=== PATIENT | male | born 1960 | race Caucasian/White ===

== ENCOUNTER 2017-01-04 05:09 | Day surgery (SDC) | payer BC, OTHER ==
[~2017-01-04] VITALS: Ht 172.7 cm; Wt 93.9 kg
--- NOTE | ~2017-01-04 | HP ---
[facility] AGE: 56 Y [address] ROOM: [place] [address] LOCATION: [facility] [place] ADMIT DATE: 01/04/2017 History & Physical DISCHARGE DATE: FAMILY PHYSICIAN: Evan Doe MD ATTENDING PHYSICIAN: Desean Love DATE OF SERVICE: CHIEF COMPLAINT: Low back pain. HISTORY OF PRESENT ILLNESS: This 56-year-old male from [place], was admitted to the hospital for elective surgery on his back. His operating surgeon is Dr. Desean Love. When I see the patient postop and follow him now for his hypertension, hypothyroidism, potential hypoxemia secondary to obstructive sleep apnea. When I see him, he has no nausea, no vomiting, no chest pain, no shortness of breath postop. PAST MEDICAL HISTORY: MEDICINES: 1. Tricor 48 mg one daily. 2. Ziac 10 mg one daily. 3. Synthroid 0.15 mg daily. 4. Singulair 10 mg at night. 5. Vitamin B complex one daily. 6. Tylenol as needed. 7. CoQ10 100 mg twice a day. ALLERGIES TO MEDICATION: Augmentin causing "stomach pain." SOCIAL HISTORY: Does not smoke cigarettes. FAMILY HISTORY: Negative for problem with bleeding disorder or general anesthesia. PREVIOUS OPERATIONS: Status post laminectomy on lumbar region 2012, status post C5-C7 diskectomy fusion 2016. REVIEW OF SYSTEMS: [facility] AGE: 56 Y [address] ROOM: [place] [address] LOCATION: [facility] [place] ADMIT DATE: 01/04/2017 History & Physical DISCHARGE DATE: FAMILY PHYSICIAN: Evan Doe MD ATTENDING PHYSICIAN: Desean Love Positive for obesity, hypertension, hypothyroid replacement, low back pain, previous neck surgery, and hypothyroidism; otherwise, see nurse's database form. Also positive for history of hyperlipidemia, irritable bowel syndrome, gout, generalized osteoarthritis, and seasonal allergic rhinitis. PHYSICAL EXAMINATION: GENERAL: Pleasant dark haired male. He is oriented to person, place, and time. HEENT: He wears glasses. Pupils react to light. TMs not visualized. Posterior pharynx is clear. NECK: Unremarkable. No adenopathy. No thyroid enlargement. LUNGS: Clear without wheeze or rub. HEART: Shows no murmur, gallop, or rub. ABDOMEN: Mildly obese. Nontender. No mass. PELVIC AND RECTAL: Not done. EXTREMITIES: Show pulses full throughout. NEUROLOGIC: Cranial nerves intact. No lateralizing signs. Mental status is normal for age. ASSESSMENT: 1. Low back pain. 2. Status post lumbar back surgery, see Dr. Love's operative note. 3. Hypertension, essential. 4. History of hyperlipidemia. 5. History of irritable bowel syndrome. 6. History of gout. 7. Generalized osteoarthritis. 8. Hypothyroid replacement. 9. Allergic rhinitis, perennial. PLAN: Follow daily, further changes indicated. MD RIGOBERTO DIOP/anisha /[id number] D: 043 T: 034 HISTORY & PHYSICAL
--- NOTE | ~2017-01-04 | PUL ---
PATIENT'S NAME: PURA MELENDREZ [facility] AGE: 56 Y [address] ROOM: [address] [address] LOCATION: [facility] [place] ADMIT DATE: 01/04/2017 Pulmonary DISCHARGE DATE: 01/05/2017 FAMILY PHYSICIAN: Evan Doe MD ATTENDING PHYSICIAN: Desean Love NAME OF PROCEDURE: Overnight Pulse Oximetry DATE OF PROCEDURE: January 04 to January 05, 2017 REASON FOR EXAM: Nocturnal hypoxemia RESULTS: The test was performed on room air. The recording time was 9 hours, 7 minutes, with a total valid sampling time of 8 hours, 54 minutes, and 24 seconds. The highest pulse was 104, lowest pulse was 67, with a mean pulse of 82. The highest SpO2 was 96%, lowest SpO2 was 69%, with a mean SpO2 of 86.6%. The patient spent 7 hours, 37 minutes, and 32 seconds with SpO2 less than 89%, representing 85.6% of the total sleep time. The desaturation event index was elevated at 13.5. PHYSICIAN INTERPRETATION: The patient has evidence of significant nocturnal hypoxia and would qualify for supplemental oxygen as per Medicare criteria. However, because of the severity of his nocturnal hypoxia with an elevated desaturation event index a sleep study is recommended at this time. MD COREEN ROSALES/katerina /[id number] dtt: 01/09/17 1200 SUDHA RADU F dtd: 01/07/17 1541
--- NOTE | ~2017-01-04 | OR ---
PATIENT'S NAME: PURA MELENDREZ [facility] AGE: 56 Y [address] ROOM: [place] [address] LOCATION: [facility] [place] ADMIT DATE: 01/04/2017 OR/Procedure Report DISCHARGE DATE: FAMILY PHYSICIAN: Evan Doe MD ATTENDING PHYSICIAN: Desean Love SURGEON: Desean Love MD WINDOWS [employer] ADMINISTRATOR: DATE OF PROCEDURE: 01/04/2017 PREOPERATIVE DIAGNOSES: 1. Lumbar degenerative disk disease. 2. Lumbar stenosis. 3. Lumbar radiculopathy. 4. Low back pain. 5. Status post lumbar fusion L3-S1. POSTOPERATIVE DIAGNOSES: 1. Lumbar degenerative disk disease. 2. Lumbar stenosis. 3. Lumbar radiculopathy. 4. Low back pain. 5. Status post lumbar fusion L3-S1. PROCEDURES PERFORMED: 1. Lumbar hemilaminotomy, bilateral L1-L2. 2. Lumbar hemilaminotomy left L2-L3. K9 HANDLER: Rusty Harvey PA-C. ANESTHESIA: General. ESTIMATED BLOOD LOSS: 25 mL. COMPLICATIONS: None. SPECIMENS: None. FINDINGS: Stenosis. OPERATIVE INDICATIONS: The patient is a 56-year-old male who I have followed for symptomatic lumbar spinal stenosis. He was status post fusion from L3-S1 and had developed stenosis at L1-L2 and L2-L3. The stenosis was mostly posterior element hypertrophy, but some disk disease at L1-L2. Because of its proximity to the conus, it was determined that he would do best with lowest risk of just a decompression and not partial diskectomy of the area. After [facility] AGE: 56 Y [address] ROOM: [place] [address] LOCATION: [facility] [place] ADMIT DATE: 01/04/2017 OR/Procedure Report DISCHARGE DATE: FAMILY PHYSICIAN: Evan Doe MD ATTENDING PHYSICIAN: Desean Love details, risks, benefits, and options were explained, he freely consented to surgery. OPERATIVE NARRATIVE: After the patient was correctly identified, operative site initialed, he was taken back to the operating room, placed in the supine position. After general anesthesia was induced, he was placed in the prone position on the Donnell frame with all bony prominences well-padded and protected. The back was prepped and draped in usual sterile fashion. Time- out was taken to verify the patient and procedure. He received IV antibiotics prior to surgery. 10 mL of 0.25% Marcaine with epinephrine was injected in line with the incision. A 10-blade was used to make an incision over his previous scar. Dissection taken down through subcutaneous tissue electrocautery. The fascia was opened midline and subperiosteal dissection performed to expose the posterior elements. Doron elevator was placed at L1- L2 to verify the correct levels. Self-retaining tractors placed the wound. High-speed bur was used to create a laminotomy defect bilaterally at L1-L2 and unilaterally at L2-L3 at the superior aspect of L2. The limb plane was encountered and then Kerrisons were used to complete the laminotomy. The ligamentum of flavum was resected and the dura was identified and directly decompressed. After the L1-L2 area and L2-L3 area were properly decompressed and probed freely, the nerve hook was passed lateral to the dura gently to feel for this tissue. It was non-compressive and with the posterior decompression, there were no further areas of stenosis. The area was irrigated and dried. An 80 mg of Depo-Medrol was injected dorsally over the dura. The self-retaining retractors were removed from the wound and the incision was repaired with #1 Vicryl in the fascia and 0 Vicryl in the subcutaneous tissue. [place] in the skin. Sterile dressing was applied. The patient was awakened from anesthesia and taken to recovery in stable condition. The junior assistant manager was necessary in this surgical procedure for evacuation of blood during decompression and exposure of the dural and nerve root tissue. MD KIM MENA/anisha /[id number] d: 01/04/17 1144 t: 01/04/17 1643, OPERATIVE SUMMARY
[~2017-01-04 05:09] MED LIST: B COMPLEX1 EACH PO; COQ-10100 MG PO; LEVOTHYROXINE150 MCG PO; SINGULAIR10 MG PO; TRICOR48 MG PO; TYLENOL EXTRA500 MG PO; ZIAC 10-6.25 M1 EACH PO
--- NOTE | 2017-01-04 15:30 | NUR ---
SPOKE TO PATIENT REGARDING CM AND OUR ROLE. PATIENT LIVES IN OWN HOME WITH HIS HANDICAP SON. HE REPORTS THAT HE IS PLANNING ON GOING HOME WITH HELP FROM FAMILY WHO ARE TAKING TURNS TO STAY WITH HIM AT THE HOME ONCE HE IS DISCHARGED PATIENT DOES NOT ANTICIPATE ANY DISCHARGE NEEDS AT THIS TIME. WILL CONT TO FOLLOW NEEDED.
--- NOTE | 2017-01-04 16:35 | NUR ---
ARRIVED FROM PACU AT 1115. DRESSING TO BACK INTACT WITH DRAINAGE NOTED AND MARKED. DR. CASTILLO AWARE OF DRAINAGE, "STATED TO REINFORCE DRESSING TONIGHT AND HE WILL CHANGE IT IN THE MORNING". BACK BRACE IN ROOM. UP TO THE BR WITH MINIMAL ASSIST AND VOIDS WITHOUT DIFFICULTY. HAD SOMA AT 1300. HAD 2 OXYCODONE AT 1420. O2 ON AT 2L PER NC MAINLY BECAUE DESATS WHEN FALLS ASLEEP. PLAN TO DISCHARGE TOMORROW. FAMILY AT BEDSIDE. VERY COOPERATIVE WITH CARES.
--- NOTE | 2017-01-05 05:09 | NUR ---
Significant Event: Dressing has a large amount of drainage. CSM WNL. Voids without difficulty. 1 assist with transfers. Back brace. Last Oxycodone at 0249. On an overnight trend ox. Possible dismissal. Follow up:
[2017-01-05] MEDS ORDERED: SOMA350 MG PO (11:09)
[2017-01-05] MEDS ORDERED: PERCOCET 5-3251 EACH PO (11:16)
== END 2017-01-05 12:30 | disposition disaster alternative care site (69) ==
LOC: G3N 05:09 → GMSU 05:09 → GSDC 05:09 → G3N 05:11 → GMSU 05:11 → GSDC 07:00 → GPOC 10:00 → GSDC 10:00
PROC: 00NY0ZZ Release Lumbar Spinal Cord, Open Approach (ICD-10-PCS; principal; 2017-01-04)
DX: M48.06 Spinal stenosis, lumbar region (principal); M51.16 Intervertebral disc disorders with radiculopathy, lumbar region; M19.90 Unspecified osteoarthritis, unspecified site; E78.5 Hyperlipidemia, unspecified; G47.33 Obstructive sleep apnea (adult) (pediatric); M10.9 Gout, unspecified; I10 Essential (primary) hypertension; E03.9 Hypothyroidism, unspecified; R09.02 Hypoxemia; Z98.1 Arthrodesis status; Z79.899 Other long term (current) drug therapy; Z90.49 Acquired absence of other specified parts of digestive tract; Z98.890 Other specified postprocedural states
CPT/HCPCS: J0131; J0171; J0690; J1040; J1100; J2001; J2405; J7120